=== PATIENT | female | born 1995 | race Caucasian/White ===

== ENCOUNTER 2020-08-12 07:42 | Emergency (ER) | payer OTHER ==
[~2020-08-12 07:42] MED LIST: COLACE 100MG C100 MG PO; IBUPROFEN600 MG PO; LORTAB 5-325 M1 EACH PO; PRENATAL TABLE1 EAC3 PO
[2020-08-12 09:35] LABS: HEMOGLOBIN 12.7 gm/dl (12.3-15.3); RED BLOOD COUNT 4.6 M/UL (4.00-5.10); WHITE BLOOD COUNT 7.9 K/UL (4.5-11.0)
[2020-08-12 10:01] LABS: BUN/CREATININE RATIO 17 (0-10)
[2020-08-12] MEDS ORDERED: IBUPROFEN600 MG PO (10:45)
[2020-08-12] MEDS ORDERED: NORFLEX 100 MG100 MG PO (10:45)
== END 2020-08-12 10:51 | disposition home or self-care (01) ==
LOC: ER1 07:42
DX: S10.93XA Contusion of unspecified part of neck, initial encounter (principal); M54.5 Low back pain; F17.210 Nicotine dependence, cigarettes, uncomplicated; Y08.89XA Assault by other specified means, initial encounter
CPT/HCPCS: 70491; 71046; 80053; 84703; 85025; 99284; Q9963

== ENCOUNTER 2021-09-16 08:33 | Outpatient (CLI) | payer OTHER ==
[~2021-09-16 08:33] MED LIST changes: +NORFLEX 100 MG100 MG PO
== END 2021-09-16 11:59 | disposition home or self-care (01) ==
LOC: GENOP 08:33
PROVIDERS: Obstetrics & Gynecology
DX: O47.1 False labor at or after 37 completed weeks of gestation (principal); Z3A.00 Weeks of gestation of pregnancy not specified
CPT/HCPCS: 80307; 81001; G0463

== ENCOUNTER → 2021-09-24 | Outpatient (CLI) | payer OTHER ==
[~2021-09-24] MED LIST changes: +DOCUSATE SODIU100 MG PO; +FERROUS SULFAT325 M2 PO
== END ==
LOC: GENOP 08:05
DX: O47.1 False labor at or after 37 completed weeks of gestation (principal); O99.891 Other specified diseases and conditions complicating pregnancy; M54.9 Dorsalgia, unspecified; Z3A.37 37 weeks gestation of pregnancy
CPT/HCPCS: 59025; 81001; G0463

== ENCOUNTER 2021-09-27 13:51 | Inpatient (IN) | payer OTHER ==
[~2021-09-27] VITALS: Ht 160 cm; Wt 70.8 kg
[~2021-09-27 13:51] MED LIST changes: -DOCUSATE SODIU100 MG PO; -FERROUS SULFAT325 M2 PO
[2021-09-27 14:31] LABS: HEMOGLOBIN 10.4 gm/dl (12.3-15.3); RED BLOOD COUNT 3.76 M/UL (4.00-5.10)
[2021-09-27] MEDS ORDERED: FERROUS SULFAT325 M2 PO (15:13)
[2021-09-28] MEDS ORDERED: DOCUSATE SODIU100 MG PO (12:45)
[2021-09-28] MEDS ORDERED: IBUPROFEN600 MG PO (12:45)
== END 2021-09-28 20:53 | disposition home or self-care (01) | DRG 807 ==
LOC: GENOP 13:51 → OB 14:11
PROVIDERS: Obstetrics & Gynecology; ADMIT Obstetrics & Gynecology
PROC: 10E0XZZ Delivery of Products of Conception, External Approach (ICD-10-PCS; principal; 2021-09-27)
PROC: 10907ZC Drainage of Amniotic Fluid, Therapeutic from Products of Conception, Via Natural or Artificial Opening (ICD-10-PCS; 2021-09-27)
PROC: 3E033VJ Introduction of Other Hormone into Peripheral Vein, Percutaneous Approach (ICD-10-PCS; 2021-09-27)
PROC: 3E0234Z Introduction of Serum, Toxoid and Vaccine into Muscle, Percutaneous Approach (ICD-10-PCS; 2021-09-27)
DX: O99.824 Streptococcus B carrier state complicating childbirth (principal); Z37.0 Single live birth; O69.81X0 Labor and delivery complicated by cord around neck, without compression, not applicable or unspecified; Z3A.39 39 weeks gestation of pregnancy; Z28.310 Unvaccinated for COVID-19; Z83.3 Family history of diabetes mellitus; Z82.5 Family history of asthma and other chronic lower respiratory diseases; Z23 Encounter for immunization
CPT/HCPCS: 36415; 81001; 82800; 85014; 85018; 85025; 90471; 90715; J2590; J7120